=== PATIENT | male | born 2000 | race African-American/Black ===

== ENCOUNTER 2023-10-03 19:16 | Emergency (ER) | payer SELFPAY | END 2023-10-03 21:12 | disposition home or self-care (01) | LOC: CSHERS 19:16 | DX: M25.571 Pain in right ankle and joints of right foot (principal); M25.572 Pain in left ankle and joints of left foot; M25.561 Pain in right knee; M25.562 Pain in left knee; I10 Essential (primary) hypertension | CPT/HCPCS: 72100 ==